=== PATIENT | male | born 1950 | race Caucasian/White ===

== ENCOUNTER → 2017-03-30 | Outpatient (CLI) | payer MEDICARE ==
--- NOTE | 2017-03-30 09:09 | RAD ---
Examination: Ultrasound abdomen complete History: History of liver mass follow-up Comparison: 01/20/2015 Findings: The pancreas is obscured by bowel gas. The visualized aorta, IVC appear patent The echogenicity the liver grossly appears unremarkable. There is a 1.8 cm hypoechoic lesion identified in the right lobe of the liver grossly similar to prior exam. No evidence of gallstones identified. The right kidney measures 10.4 x 4.9 x 4.3 cm. The left kidney measures 11.3 x 5.0 x 5.2 cm. There is a cystic structure identified in the left kidney measuring 1.1 cm probably a cyst. The spleen measures 7.3 cm in length. Impression: 1. Unchanged 1.8 cm hypoechoic lesion identified in the liver, stable since 2015. 2. 1.1 cm cystic structure identified in the left kidney probably a cyst.
== END | disposition home or self-care (01) ==
LOC: US 07:41
PROVIDERS: ATTEND Family Medicine
DX: D37.6 Neoplasm of uncertain behavior of liver, gallbladder and bile ducts (principal)
CPT/HCPCS: 76700